=== PATIENT | female | born 1965 | race Caucasian/White ===

== ENCOUNTER 2016-10-30 10:27 | Emergency (ER) | payer OTHER ==
--- NOTE | 2016-10-30 10:43 | CPEKG ---
Heart Rate: 54 RR Interval: 1111 P-R Interval: 152 QRSD Interval: 84 QT Interval: 428 QTC Interval: 406 P Brewster: 66 QRS Brewster: 72 T Wave Brewster: 44 EKG Severity - BORDERLINE ECG - EKG Impression: SINUS RHYTHM EKG Impression: PROBABLE LEFT ATRIAL ABNORMALITY Electronically Signed By: Jonathan Cerna 31-Oct-2016 14:00:15
--- NOTE | 2016-10-30 10:46 | EDPHY ---
HPI/HX/ROS/PE/MDM Narrative: CHIEF COMPLAINT: Dizziness HPI: The patient is a 51-year-old female who complains of acute dizziness. The patient woke up yesterday morning feeling dizzy off balance. This morning she woke up and felt like the room was spinning. Her symptoms are worse when moving her head. She has associated nausea. Patient notes a right sided "sludgy" sensation to the back of her head as well as bilateral tingling sensation in her fingers, worse on the left. According to patient's , the patient was having slurred speech while at work. And having a difficult time with word finding. She has experienced similar dizziness in the past and had CT and ECHO done that were negative. No recent travel. REVIEW OF SYSTEMS: Aside from elements discussed in the HPI, a comprehensive 10-point review of systems was reviewed and is negative. PMH: Denies. SOCIAL HISTORY: . Denies drug or alcohol abuse. PHYSICAL EXAM: General: Patient is alert, in no acute distress. ENT: Eyes are normal to inspection. ENT inspection normal. No nystagmus. Movement of head reproduces symptoms of vertigo and nausea. Neck: Normal inspection. Full range of motion. Respiratory: No respiratory distress. Breath sounds normal bilaterally. Cardiovascular: Regular rate and rhythm. Strong peripheral pulses. Abdomen: The abdomen is nontender to palpation. There are no peritoneal signs. There are normal bowel sounds. Back: Normal to inspection. No tenderness to palpation. Skin: Normal color. No rash. Warm and dry. Extremities: Normal appearance. Full range of motion. Neuro: Oriented x3. Normal motor function. Normal sensory function. Cranial nerves intact. Normal finger to nose bilaterally. Normal heel to miller bilaterally. No slurred speech. Normal rapid alternating movements bilaterally. Portions of this note were transcribed by a medical front desk coordinator. I personally performed a history, physical exam, medical decision making, and confirmed accuracy of information the transcribed note. ED Course: Patient presents with benign vertigo. She is neurologically intact. Symptomatic treatment includes Meclizine. CT head and cervical spine ordered. EKG was ordered and interpreted by myself. Please see [facility] system for official reading: Sinus rhythm. CT imaging was called to me by the radiologist, Dr. Polanco. All imaging is negative. 1430: Patient road tested well. Her symptoms have improved. Plan to discharge home with Neurology followup. MDM: This patient presents with signs and symptoms of peripheral vertigo. Currently complicating factor is that patient describes a mild amount of tingling to her left hand and her notes that her coworkers felt like she had slurred speech. The patient denies this, but given this atypical feature, we proceeded with further evaluation for stroke including noncontrast head CT as well as a CT angiogram of the head and neck. Thankfully, these studies are normal. The patient has a completely normal cerebellar exam, so I think posterior circulation stroke of is very unlikely. In further discussion with this patient , but she states that approximately 10 years ago she had "some sort of migraine issue" in which she had similar symptoms and underwent an extensive workup. I suspect the patient likely has some combination of peripheral vertigo and/or complex migraine. I added on re-evaluation, her symptoms have completely resolved. I doubt TIA. There is no evidence of subarachnoid hemorrhage, seizure, subdural hematoma, meningitis. The patient is comfortable with the plan to be discharged home and follow up with Neurology. - Data Points Imaging Results: Imaging Impressions Head CT 10/30/16 10:54 Impression: Normal. Results called to Catracho Dewitt MD at 10/30/2016 13:16. Head CTA 10/30/16 10:54 Impression: Negative CT angiogram of the brain. CT Angiogram Neck With Contrast Enhancement and Multiplanar Reconstructions History: Dizziness, vertigo. Possible CVA. Technique: 1.25 mm axial multidetector helical CT imaging was performed through the neck while 85 mL Isovue-370 were injected intravenously without complication. The images were then transferred to an independent workstation where multiplanar and three-dimensional reconstructions were performed by the interpreting physician and reviewed at multiple windows. Dose reduction techniques were utilized. CTA Findings: Normal branching of the great vessels. Common carotid artery, carotid bulb, and both internal carotid arteries are widely patent without significant stenosis or dissection. The left vertebral artery is dominant. No evidence for stenosis or dissection in either vertebral artery. Impression: Normal CT angiogram carotids and vertebral arteries. Measurement of carotid stenosis is based on the residual internal carotid diameter with [place] Symptomatic Carotid Endarterectomy Trial (NASCET) based stenosis levels. Results called to Catracho Dewitt MD at 10/30/2016 13:14. Neck CTA 10/30/16 10:54 Impression: Negative CT angiogram of the brain. CT Angiogram Neck With Contrast Enhancement and Multiplanar Reconstructions History: Dizziness, vertigo. Possible CVA. Technique: 1.25 mm axial multidetector helical CT imaging was performed through the neck while 85 mL Isovue-370 were injected intravenously without complication. The images were then transferred to an independent workstation where multiplanar and three-dimensional reconstructions were performed by the interpreting physician and reviewed at multiple windows. Dose reduction techniques were utilized. CTA Findings: Normal branching of the great vessels. Common carotid artery, carotid bulb, and both internal carotid arteries are widely patent without significant stenosis or dissection. The left vertebral artery is dominant. No evidence for stenosis or dissection in either vertebral artery. Impression: Normal CT angiogram carotids and vertebral arteries. Measurement of carotid stenosis is based on the residual internal carotid diameter with [place] Symptomatic Carotid Endarterectomy Trial (NASCET) based stenosis levels. Results called to Catracho Dewitt MD at 10/30/2016 13:14. Imaging: Discussed imaging studies w/ fisher scallop Radiologist Laboratory Results: Laboratory Results 10/30/16 11:00 10/30/16 11:00 10/30/16 10/30/16 11:00 11:00 WBC 8.28 10^3/uL 10^3/uL (3.80-9.50) RBC 5.36 10^6/uL H 10^6/uL (4.18-5.33) Hgb 15.9 g/dL g/dL (12.6-16.3) Hct 48.7 % H % (38.0-47.0) MCV 90.9 fL fL (81.5-99.8) MCH 29.7 pg pg (27.9-34.1) MCHC 32.6 g/dL g/dL (32.4-36.7) RDW 14.5 % % (11.5-15.2) Plt Count 231 10^3/uL 10^3/uL (150-400) MPV 10.7 fL fL (8.7-11.7) Neut % (Auto) 79.9 % H % (39.3-74.2) Lymph % (Auto) 12.0 % L % (15.0-45.0) [place] % (Auto) 5.6 % % (4.5-13.0) Eos % (Auto) 1.3 % % (0.6-7.6) Baso % (Auto) 1.0 % % (0.3-1.7) Nucleat RBC Rel Count 0.0 % % (0.0-0.2) Absolute Neuts (auto) 6.62 10^3/uL H 10^3/uL (1.70-6.50) Absolute Lymphs (auto) 0.99 10^3/uL L 10^3/uL (1.00-3.00) Absolute Monos (auto) 0.46 10^3/uL 10^3/uL (0.30-0.80) Absolute Eos (auto) 0.11 10^3/uL 10^3/uL (0.03-0.40) Absolute Basos (auto) 0.08 10^3/uL 10^3/uL (0.02-0.10) Absolute Nucleated RBC 0.00 10^3/uL 10^3/uL (0-0.01) Immature Gran % 0.2 % % (0.0-1.1) Immature Gran # 0.02 10^3/uL 10^3/uL (0.00-0.10) Sodium 143 mEq/L mEq/L (134-144) Potassium 4.5 mEq/L mEq/L (3.5-5.2) Chloride 104 mEq/L mEq/L (97-110) Carbon Dioxide 24 mEq/l mEq/l (22-31) Anion Gap 15 mEq/L mEq/L (8-16) BUN 16 mg/dL mg/dL (7-23) Creatinine 0.9 mg/dL mg/dL (0.6-1.0) Estimated GFR > 60 Glucose 103 mg/dL H mg/dL (70-100) Calcium 10.0 mg/dL mg/dL (8.5-10.4) Troponin I < 0.012 ng/mL ng/mL (0-0.034) Medications Given: Discontinued Medications Meclizine HCl (Meclizine Hcl) 25 mg PO EDNOW ONE Stop: 10/30/16 11:10 Last Admin: 10/30/16 11:15 Dose: 25 mg Metoclopramide HCl (Reglan Injection) 10 mg IVP EDNOW ONE Stop: 10/30/16 13:25 Last Admin: 10/30/16 13:40 Dose: 10 mg Morphine Sulfate (Morphine) 2 mg IVP EDNOW ONE Stop: 10/30/16 11:40 Last Admin: 10/30/16 11:54 Dose: 2 mg Ondansetron HCl (Zofran) 4 mg IVP EDNOW ONE Stop: 10/30/16 11:55 Last Admin: 10/30/16 11:55 Dose: 4 mg General Time Seen by Provider: 10/30/16 10:38 Initial Vital Signs: Initial Vital Signs Temperature (C) 36.5 C 10/30/16 10:31 Heart Rate 66 10/30/16 10:31 Respiratory Rate 16 10/30/16 10:31 Blood Pressure 134/92 H 10/30/16 10:31 O2 Sat (%) 99 10/30/16 10:31 O2 Delivery Mode Room Air Allergies/Adverse Reactions: meperidine [From Demerol] Allergy (Verified 10/30/16 10:33) Departure - Departure Disposition: Home, Routine, Self-Care Clinical Impression: Vertigo Condition: Good Instructions: Vertigo (ED) Additional Instructions: Use meclizine as prescribed. Drink plenty of fluids. Return to the emergency department immediately for headache, numbness, weakness, severe vertigo, neck pain, inability to tolerate fluids by mouth or other worsening of condition. If symptoms persist for more than 48 hours, followup with your primary care physician and/or a neurologist for further evaluation. Referrals: [facility] TONG [Other] - As per Instructions Boris Gaytan MD [Medical Doctor] - As per Instructions (Neurology) Report Scribed for: Catracho Dewitt Report Scribed by: Erika Castorena Date of Report: 10/30/16 Time of Report: 10:45
[2016-10-30] MEDS ORDERED: MECLIZINE HCL 25 MG TAB PO ONE (11:09)
[2016-10-30 11:11] LABS: % IMMATURE GRANULYOCYTES 0.2 % (0.0-1.1); ABSOLUTE IMMATURE GRANULOCYTES 0.02 10^3/uL (0.00-0.10); ADD DIFF? NO; ADD MORPH? NO; ADD SCAN? NO; ATYPICAL LYMPHOCYTE FLAG 10 (0-99); FRAGMENT RBC FLAG 0 (0-99); HEMATOCRIT 48.7 % (38.0-47.0); HEMOGLOBIN 15.9 g/dL (12.6-16.3); LEFT SHIFT FLG 0 (0-99); LIPEMIA HEMOLYSIS FLAG 80 (0-99); MEAN CELL HEMOGLOBIN 29.7 pg (27.9-34.1); MEAN CELL HEMOGLOBIN CONCENTR. 32.6 g/dL (32.4-36.7); MEAN CELL VOLUME 90.9 fL (81.5-99.8); MEAN PLATELET VOLUME 10.7 fL (8.7-11.7); PLATELET CLUMPS FLAG 0 (0-99); PLATELET COUNT 231 10^3/uL (150-400); RED BLOOD CELL COUNT 5.36 10^6/uL (4.18-5.33); RED CELL DISTRIBUTION WIDTH 14.5 % (11.5-15.2)
[2016-10-30 11:28] LABS: ANION GAP 15 mEq/L (8-16); CARBON DIOXIDE 24 mEq/l (22-31); CHLORIDE 104 mEq/L (97-110); CREATININE 0.9 mg/dL (0.6-1.0); GLOMERULAR FILTRATION RATE > 60; GLUCOSE 103 mg/dL (70-100); POTASSIUM 4.5 mEq/L (3.5-5.2); SODIUM 143 mEq/L (134-144)
[2016-10-30] MEDS ORDERED: IOPAMIDOL (ISOVUE 370) 100 ML BTL IV ONE (11:34)
[2016-10-30 11:40] LABS: TROPONIN I < 0.012 ng/mL (0-0.034)
[2016-10-30] MEDS ORDERED: ONDANSETRON 4 MG/2 ML VIAL ONE (11:48)
[2016-10-30] MEDS ORDERED: ONDANSETRON 4 MG/2 ML VIAL IVP ONE (11:54)
[2016-10-30 12:17] VITALS: O2SAT 98
[2016-10-30] MEDS ORDERED: METOCLOPRAMIDE 10 MG/2 ML VIAL IVP ONE (13:24)
[2016-10-30 14:41] VITALS: BP 128/76; PULSE 72; RESP 16; TEMP 96.8
== END 2016-10-30 14:44 | disposition home or self-care (01) ==
DX: R42 Dizziness and giddiness (principal)
CPT/HCPCS: 96374; J2405; J2765; Q9967